=== PATIENT | female | born 1960 | race Asian ===

== ENCOUNTER 2020-03-31 16:37 | Emergency (ER) | payer MEDICAID ==
[~2020-03-31] VITALS: Ht 162.6 cm; Wt 74.5 kg
[2020-03-31] MEDS ORDERED: ATEN-72 PO (16:41)
[2020-03-31] MEDS ORDERED: SULFAMETHOX/TRIMETH DS 800-160 MG/TABLET PO ONE (18:15)
[2020-03-31] MEDS ORDERED: IBUPROFEN 600 MG TABLET PO ONE (18:15)
[2020-03-31 18:57] VITALS: BP 154/88
== END 2020-03-31 18:58 | disposition home or self-care (01) ==
LOC: EMS 16:40
DX: S62.634A Displaced fracture of distal phalanx of right ring finger, initial encounter for closed fracture (principal); I10 Essential (primary) hypertension; Z88.0 Allergy status to penicillin; W22.8XXA Striking against or struck by other objects, initial encounter; Y93.89 Activity, other specified; Y92.89 Other specified places as the place of occurrence of the external cause; Y99.8 Other external cause status

== ENCOUNTER 2020-04-14 20:37 | Emergency (ER) | payer MEDICAID ==
[~2020-04-14] VITALS: Ht 162.6 cm; Wt 72.7 kg
[~2020-04-14 20:37] MED LIST: ATEN-72 PO
[2020-04-15 00:30] VITALS: BP 135/74
== END 2020-04-15 01:50 | disposition home or self-care (01) ==
LOC: EMS 20:37
DX: S62.664A Nondisplaced fracture of distal phalanx of right ring finger, initial encounter for closed fracture (principal); I10 Essential (primary) hypertension; Z88.0 Allergy status to penicillin; Z79.899 Other long term (current) drug therapy; X58.XXXA Exposure to other specified factors, initial encounter; Y93.89 Activity, other specified; Y92.89 Other specified places as the place of occurrence of the external cause; Y99.8 Other external cause status

== ENCOUNTER 2021-01-12 11:53 | Emergency (ER) | payer OTHER ==
[~2021-01-12] VITALS: Ht 162.6 cm; Wt 74.5 kg
[2021-01-12 13:00] VITALS: BP 148/77
== END 2021-01-12 14:12 | disposition home or self-care (01) ==
LOC: EMS 11:53
DX: H60.11 Cellulitis of right external ear (principal)
CPT/HCPCS: 99283; Z7502

== ENCOUNTER 2021-04-28 12:07 | Emergency (ER) | payer OTHER ==
[~2021-04-28] VITALS: Ht 162.6 cm; Wt 74.1 kg
[2021-04-28] MEDS ORDERED: LOSA-370 PO (12:10)
[2021-04-28] MEDS ORDERED: METF-1211 PO (12:10)
[2021-04-28 12:15] VITALS: BP 153/91
== END 2021-04-28 13:34 | disposition left against medical advice (07) ==
LOC: EMS 12:09
DX: J02.9 Acute pharyngitis, unspecified (principal); Z53.21 Procedure and treatment not carried out due to patient leaving prior to being seen by health care provider

== ENCOUNTER 2022-10-31 09:28 | Emergency (ER) | payer OTHER ==
[~2022-10-31] VITALS: Ht 162.6 cm; Wt 72.7 kg
[~2022-10-31 09:28] MED LIST changes: +METF-1211 PO
[2022-10-31 09:35] VITALS: TEMP 98.2
[2022-10-31] MEDS ORDERED: METF-1185 PO (09:36)
[2022-10-31] MEDS ORDERED: SEMA1PEN3 SQ (09:36)
[2022-10-31 10:05] LABS: APPEARANCE,URINE HAZY (CLEAR); BILIRUBIN,URINE NEGATIVE (NEGATIVE); GLUCOSE, URINE (UA) NEGATIVE (NEGATIVE); KETONES,URINE NEGATIVE (NEGATIVE); LEUKOCYTE ESTERASE ,URINE TRACE (NEGATIVE); NITRATE,URINE NEGATIVE (NEGATIVE); OCCULT BLOOD,URINE NEGATIVE (NEGATIVE); PH,URINE 5.5 (5.0-8.0); PROTEIN,URINE TRACE mg/dL (NEGATIVE); SPECIFIC GRAVITIY, URINE 1.026 (1.003-1.030); UROBILINOGEN,URINE <=1.0 mg/dL (<=1.0)
[2022-10-31 10:08] LABS: BACTERIA,URINE None Seen /HPF (None Seen); RBC,URINE None Seen /HPF (0-2); SQUAMOUS EPITHELIAL CELL,UR Few /LPF (None Seen); WBC,URINE 0-2 /HPF (0-5)
[2022-10-31 10:15] LABS: BASOPHILS % (AUTO) 0.6 % (0.0-2.0); HEMATOCRIT 40.9 % (36-46); HEMOGLOBIN 13.7 g/dL (12.0-16.0); LYMPHOCYTES # (AUTO) 2.7 K/uL (1.0-4.8); LYMPHOCYTES % (AUTO) 23.8 % (22.0-44.0); MEAN CORPUSCULAR HEMOGLOBIN 30.9 pg (26.0-34.0); MEAN CORPUSCULAR HGB CONC 33.5 G/dL (31.0-37.0); MEAN CORPUSCULAR VOLUME 92 fL (80-100); MONOCYTES # (AUTO) 0.9 K/uL (0.1-1.0); MONOCYTES % (AUTO) 8.1 % (2.0-9.0); NEUTROPHILS # (AUTO) 7.5 K/uL (1.8-7.7); NEUTROPHILS % (AUTO) 65.5 % (40.0-70.0); PLATELET COUNT (AUTO) 248 K/uL (150-450); RED BLOOD CELL COUNT(AUTO) 4.42 MIL/uL (4.00-5.20); RED CELL DISTRIBUTION WIDTH 13.8 % (11.5-14.5)
[2022-10-31 10:21] LABS: CALCIUM, TOTAL 9.3 mg/dL (8.8-10.5); CREATININE 1.03 mg/dL (0.60-1.30); POTASSIUM 3.5 mmol/L (3.5-5.1)
[2022-10-31 10:27] LABS: BILIRUBIN,TOTAL 0.8 mg/dL (0.1-1.0); TOTAL PROTEIN, SERUM 8.4 g/dL (6.4-8.2)
[2022-10-31] MEDS ORDERED: SULFAMETHOX/TRIMETH DS 800-160 MG/TABLET PO ONE (13:00)
[2022-10-31] MEDS ORDERED: SULF-261 PO (13:31)
[2022-10-31 14:10] VITALS: BP 130/80; PULSE 67; RESP 16
== END 2022-10-31 14:10 | disposition home or self-care (01) ==
LOC: EMS 09:31
DX: R19.7 Diarrhea, unspecified (principal); R10.2 Pelvic and perineal pain; R82.81 Pyuria; J45.909 Unspecified asthma, uncomplicated; E11.9 Type 2 diabetes mellitus without complications; I10 Essential (primary) hypertension; Z90.49 Acquired absence of other specified parts of digestive tract; Z88.0 Allergy status to penicillin
CPT/HCPCS: 74176; 80053; 81001; 83690; 84484; 85025; 93005; 99284

== ENCOUNTER 2023-05-09 08:20 | Emergency (ER) | payer OTHER ==
[~2023-05-09] VITALS: Ht 162.6 cm; Wt 72.7 kg
[~2023-05-09 08:20] MED LIST changes: +METF-1185 PO; -METF-1211 PO; +SEMA1PEN3 SQ; +SULF-261 PO
[2023-05-09 08:24] VITALS: TEMP 99
[2023-05-09 08:41] LABS: GLUCOMETER DEV NAME(LOC) ER.6; GLUCOSE,POINT OF CARE 186 MG/DL (70-110)
[2023-05-09 09:18] LABS: COVID AG,FIA SOURCE NASAL SWAB
[2023-05-09 09:50] LABS: RAPID GROUP A STREP POSITIVE (NEGATIVE)
[2023-05-09 09:57] LABS: INFLUENZA TYPE A NEGATIVE FOR TYPE A (NEGATIVE); INFLUENZA TYPE B NEGATIVE FOR TYPE B (NEGATIVE); SARS-COV2 (COVID) ANTIGEN,FIA Negative (Negative)
[2023-05-09] MEDS: LIDOCAINE 2% VISCOUS 15 ML SOLUTION UDCUP PO ONE (10:17)
[2023-05-09] MEDS ORDERED: IBUP-1554 PO (10:21)
[2023-05-09] MEDS ORDERED: CLIN300C58 PO (10:21)
[2023-05-09] MEDS ORDERED: ACET-2080 PO (10:21)
[2023-05-09 10:28] VITALS: BP 135/85; PULSE 82; RESP 16
== END 2023-05-09 10:31 | disposition home or self-care (01) ==
LOC: EMS 08:25
DX: J02.0 Streptococcal pharyngitis (principal); E11.65 Type 2 diabetes mellitus with hyperglycemia; J45.909 Unspecified asthma, uncomplicated; I10 Essential (primary) hypertension; Z90.49 Acquired absence of other specified parts of digestive tract; Z88.0 Allergy status to penicillin; Z20.822 Contact with and (suspected) exposure to COVID-19
CPT/HCPCS: 82962; 87430; 87804; 99283

== ENCOUNTER 2023-10-15 21:58 | Emergency (ER) | payer OTHER ==
[~2023-10-15] VITALS: Ht 162.6 cm; Wt 72.7 kg
[~2023-10-15 21:58] MED LIST changes: +ACET-2080 PO; +CLIN300C58 PO; +IBUP-1554 PO; -SULF-261 PO
[2023-10-15 22:51] LABS: COVID AG,FIA SOURCE NASAL SWAB
[2023-10-15 23:00] VITALS: BP 128/79; PULSE 74; RESP 18; TEMP 98.3
[2023-10-15 23:04] LABS: INFLUENZA TYPE A NEGATIVE FOR TYPE A (NEGATIVE); INFLUENZA TYPE B NEGATIVE FOR TYPE B (NEGATIVE); RAPID GROUP A STREP NEGATIVE (NEGATIVE)
[2023-10-15 23:09] LABS: SARS-COV2 (COVID) ANTIGEN,FIA Positive (Negative)
[2023-10-15] MEDS ORDERED: HYDR-4062 PO (23:35)
[2023-10-15] MEDS: IBUPROFEN 600 MG TABLET PO ONE (23:43)
== END 2023-10-15 23:50 | disposition home or self-care (01) ==
LOC: EMS 21:58
DX: U07.1 COVID-19 (principal); E11.65 Type 2 diabetes mellitus with hyperglycemia; J45.909 Unspecified asthma, uncomplicated; I10 Essential (primary) hypertension; Z90.49 Acquired absence of other specified parts of digestive tract; Z88.0 Allergy status to penicillin
CPT/HCPCS: 87430; 87804; 99283

== ENCOUNTER 2023-10-17 21:22 | Emergency (ER) | payer OTHER ==
[~2023-10-17] VITALS: Ht 162.6 cm; Wt 72.7 kg
[~2023-10-17 21:22] MED LIST changes: +HYDR-4062 PO
[2023-10-17 21:34] VITALS: BP 131/73; PULSE 90; RESP 16; TEMP 97.5
[2023-10-17 22:46] LABS: COVID AG,FIA SOURCE NASAL SWAB
[2023-10-17 23:04] LABS: INFLUENZA TYPE A NEGATIVE FOR TYPE A (NEGATIVE); INFLUENZA TYPE B NEGATIVE FOR TYPE B (NEGATIVE)
[2023-10-17 23:09] LABS: SARS-COV2 (COVID) ANTIGEN,FIA Positive (Negative)
[2023-10-17] MEDS ORDERED: NIRM1TAB10 PO (23:55)
[2023-10-17] MEDS ORDERED: GUAIFDM PO (23:55)
== END 2023-10-18 00:27 | disposition home or self-care (01) ==
LOC: EMS 21:22
DX: U07.1 COVID-19 (principal); E11.65 Type 2 diabetes mellitus with hyperglycemia; J45.909 Unspecified asthma, uncomplicated; E11.9 Type 2 diabetes mellitus without complications; I10 Essential (primary) hypertension; Z90.49 Acquired absence of other specified parts of digestive tract; Z88.0 Allergy status to penicillin
CPT/HCPCS: 87804; 99283

== ENCOUNTER 2023-10-25 15:21 | Emergency (ER) | payer OTHER ==
[~2023-10-25] VITALS: Ht 165.1 cm; Wt 65.0 kg
[~2023-10-25 15:21] MED LIST changes: +GUAIFDM PO; +NIRM1TAB10 PO
[2023-10-25 15:44] VITALS: BP 130/71; PULSE 66; RESP 16; TEMP 98
[2023-10-25 15:49] LABS: COVID AG,FIA SOURCE NASAL SWAB
[2023-10-25 16:08] LABS: SARS-COV2 (COVID) ANTIGEN,FIA Negative (Negative)
== END 2023-10-25 16:49 | disposition home or self-care (01) ==
LOC: EMS 15:21
DX: R05.9 Cough, unspecified (principal); E11.9 Type 2 diabetes mellitus without complications; I10 Essential (primary) hypertension; Z88.0 Allergy status to penicillin; Z20.822 Contact with and (suspected) exposure to COVID-19
CPT/HCPCS: 99283

== ENCOUNTER 2024-03-30 19:48 | Emergency (ER) | payer OTHER ==
[~2024-03-30] VITALS: Ht 162.6 cm; Wt 74.1 kg
[2024-03-30 19:59] VITALS: TEMP 98
[2024-03-30 20:20] LABS: GLUCOMETER DEV NAME(LOC) ERT.6; GLUCOSE,POINT OF CARE 132 MG/DL (70-110)
[2024-03-30 20:28] LABS: COVID AG,FIA SOURCE NASAL SWAB
[2024-03-30 20:45] LABS: RAPID GROUP A STREP NEGATIVE (NEGATIVE)
[2024-03-30 20:46] LABS: SARS-COV2 (COVID) ANTIGEN,FIA Negative (Negative)
[2024-03-30 20:48] LABS: INFLUENZA TYPE A NEGATIVE FOR TYPE A (NEGATIVE); INFLUENZA TYPE B NEGATIVE FOR TYPE B (NEGATIVE)
[2024-03-30 23:12] VITALS: BP 158/62; PULSE 78; RESP 18; O2SAT 97
[2024-03-30] MEDS ORDERED: ACET-66 PO (23:45)
[2024-03-30] MEDS: GuaiFENesin/D-METHORPHAN [SUGAR-FREE] 200-20MG/10 ML SYRUP UDCUP PO ONE (23:53)
[2024-03-30] MEDS: ACETAMINOPHEN 500 MG TABLET PO ONE (23:54)
== END 2024-03-30 23:59 | disposition home or self-care (01) ==
LOC: EMS 19:48
DX: J02.9 Acute pharyngitis, unspecified (principal); J45.909 Unspecified asthma, uncomplicated; E11.9 Type 2 diabetes mellitus without complications; I10 Essential (primary) hypertension; Z88.0 Allergy status to penicillin; Z79.85 Long-term (current) use of injectable non-insulin antidiabetic drugs; Z90.49 Acquired absence of other specified parts of digestive tract; Z79.899 Other long term (current) drug therapy; Z20.822 Contact with and (suspected) exposure to COVID-19
CPT/HCPCS: 82962; 87430; 87804; 99283

== ENCOUNTER 2024-08-01 22:04 | Emergency (ER) | payer OTHER ==
[~2024-08-01] VITALS: Ht 162.6 cm; Wt 70.5 kg
[~2024-08-01 22:04] MED LIST changes: +ACET-66 PO
[2024-08-01 22:09] VITALS: BP 142/56; PULSE 57; RESP 14; TEMP 97.7; O2SAT 96
[2024-08-01 22:42] LABS: BASOPHILS % (AUTO) 1.1 % (0.0-2.0); HEMATOCRIT 40.3 % (36-46); HEMOGLOBIN 13.7 g/dL (12.0-16.0); LYMPHOCYTES # (AUTO) 3.2 K/uL (1.0-4.8); LYMPHOCYTES % (AUTO) 44.9 % (22.0-44.0); MEAN CORPUSCULAR VOLUME 91 fL (80-100); MONOCYTES # (AUTO) 0.6 K/uL (0.1-1.0); MONOCYTES % (AUTO) 8.8 % (2.0-9.0); NEUTROPHILS # (AUTO) 3.1 K/uL (1.8-7.7); NEUTROPHILS % (AUTO) 43.2 % (40.0-70.0); PLATELET COUNT (AUTO) 235 K/uL (150-450); RED BLOOD CELL COUNT(AUTO) 4.41 MIL/uL (4.00-5.20); RED CELL DISTRIBUTION WIDTH 14.2 % (11.5-14.5); WHITE BLOOD COUNT (AUTO) 7.2 K/uL (4.5-11.0)
[2024-08-01 22:51] LABS: ANION GAP 7 mmol/L (8-16); CALCIUM, TOTAL 9.3 mg/dL (8.8-10.5); CARBON DIOXIDE 31 mmol/L (22-29); CHLORIDE 104 mmol/L (98-107); CREATININE 1.34 mg/dL (0.60-1.30); GLOMERULAR FILTR. RATE CALC 40 mL/min (>60); GLUCOSE,RANDOM 294 mg/dL (70-110); POTASSIUM 3.5 mmol/L (3.5-5.1); SODIUM SERUM 142 mmol/L (136-145); UREA NITROGEN, BLOOD 24 mg/dL (7-18)
[2024-08-01 23:01] LABS: TROPONIN I-HIGH SENSITIVITY 6 ng/L (<51)
[2024-08-02] MEDS ORDERED: PRED-554 PO (00:18)
[2024-08-02] MEDS ORDERED: DIPH50CA37 PO (00:18)
[2024-08-02] MEDS ORDERED: CETI-450 PO (00:18)
[2024-08-02] MEDS: PredniSONE 20 MG TABLET PO ONE (00:39)
[2024-08-02] MEDS ORDERED: IBUP-1492 PO (23:04)
[2024-08-02] MEDS ORDERED: ACET-3385 PO (23:04)
== END 2024-08-02 00:40 | disposition home or self-care (01) ==
LOC: EMS 22:04
DX: T78.1XXA Other adverse food reactions, not elsewhere classified, initial encounter (principal); L50.9 Urticaria, unspecified; E11.65 Type 2 diabetes mellitus with hyperglycemia; J45.909 Unspecified asthma, uncomplicated; I10 Essential (primary) hypertension; Z79.52 Long term (current) use of systemic steroids; Z79.85 Long-term (current) use of injectable non-insulin antidiabetic drugs; Z79.899 Other long term (current) drug therapy; Z88.0 Allergy status to penicillin; Z90.49 Acquired absence of other specified parts of digestive tract; X58.XXXA Exposure to other specified factors, initial encounter
CPT/HCPCS: 99283; 80048; 84484; 85025; 36415; J7512

== ENCOUNTER → 2024-08-02 | Emergency (ER) | payer OTHER ==
[~2024-08-02] VITALS: Ht 162.6 cm; Wt 70.5 kg
[~2024-08-02] MED LIST changes: +ACET-3385 PO; +CETI-450 PO; +DIPH50CA37 PO; +IBUP-1492 PO; +PRED-554 PO
[2024-08-02 20:22] VITALS: BP 127/57; PULSE 64; RESP 18; TEMP 97.7; O2SAT 97
[2024-08-02] MEDS: ACETAMINOPHEN 500 MG TABLET PO ONE (23:22)
[2024-08-02] MEDS: IBUPROFEN 600 MG TABLET PO ONE (23:23)
== END | disposition home or self-care (01) ==
LOC: EMS 20:16
DX: S93.492A Sprain of other ligament of left ankle, initial encounter (principal); E11.9 Type 2 diabetes mellitus without complications; I10 Essential (primary) hypertension; J45.909 Unspecified asthma, uncomplicated; Z90.49 Acquired absence of other specified parts of digestive tract; Z79.52 Long term (current) use of systemic steroids; Z79.899 Other long term (current) drug therapy; Z79.85 Long-term (current) use of injectable non-insulin antidiabetic drugs; Z88.0 Allergy status to penicillin; X58.XXXA Exposure to other specified factors, initial encounter; Y93.89 Activity, other specified; Y92.89 Other specified places as the place of occurrence of the external cause; Y99.8 Other external cause status
CPT/HCPCS: 82962; 99284

== ENCOUNTER 2024-09-03 23:47 | Emergency (ER) | payer OTHER ==
[~2024-09-03] VITALS: Ht 162.6 cm; Wt 72.7 kg
[2024-09-04 00:46] VITALS: BP 163/83; PULSE 60; RESP 18; TEMP 98.2; O2SAT 96
[2024-09-04] MEDS: ACETAMINOPHEN 500 MG TABLET PO ONE (01:58)
== END 2024-09-04 02:02 | disposition home or self-care (01) ==
LOC: EMS 23:59
DX: S86.112A Strain of other muscle(s) and tendon(s) of posterior muscle group at lower leg level, left leg, initial encounter (principal); E11.9 Type 2 diabetes mellitus without complications; I10 Essential (primary) hypertension; J45.909 Unspecified asthma, uncomplicated; Z90.49 Acquired absence of other specified parts of digestive tract; Z79.899 Other long term (current) drug therapy; Z88.0 Allergy status to penicillin; Z79.52 Long term (current) use of systemic steroids; X58.XXXA Exposure to other specified factors, initial encounter; Y93.01 Activity, walking, marching and hiking; Y92.89 Other specified places as the place of occurrence of the external cause; Y99.8 Other external cause status
CPT/HCPCS: 99283